=== PATIENT | female | born 1995 | race Caucasian/White ===

== ENCOUNTER 2016-08-27 14:54 | Emergency (ER) | payer OTHER ==
[~2016-08-27] VITALS: Ht 172.7 cm; Wt 131.3 kg
[2016-08-27 14:57] VITALS: TEMP 36.7; Ht 172.7 cm; Wt 131.3 kg
[2016-08-27] MEDS ORDERED: LORA10TA5 PO (15:30)
[2016-08-27] MEDS ORDERED: JNLF153028 PO (15:30)
--- NOTE | 2016-08-27 15:35 | DIAGNOSTIC IMAGING REPORT ---
LEFT TIBIA AND FIBULA 2 VIEWS CLINICAL HISTORY: Fall with left john pain. FINDINGS: AP and lateral views of the left tibia and fibula are correlated with radiographs of the left ankle dated 01/25/2016. The skeletal structures are well mineralized. No fracture is seen. The knee and ankle joints are grossly maintained. Pretibial soft tissue swelling is noted. IMPRESSION: Pretibial soft tissue swelling with no radiographic evidence of fracture. Electronically signed by: Giorgio Varela M.D. 08/27/2016 3:33 PM Dictated Date/Time: 08/27/2016 3:32 PM
--- NOTE | 2016-08-27 15:53 | EMERGENCY ROOM VISIT NOTE ---
ED Visit Note First contact with patient: 15:00 CHIEF COMPLAINT: Left lower leg injury 4 days ago HISTORY OF PRESENT ILLNESS: Patient is a 21-year-old white female who presents to emergency department for evaluation of left john pain 4 days. She states that she fell while taking out the garbage couple of days ago. She landed on rocks. She notes that she fell on her left knee and sustained an abrasion to the knee and the midportion of the left leg. She also has noted some bruising in her anterior john region. She states that she has been trying to stay off of the leg and stay in bed. She has not taken any medications, nor performed any interventions for her symptoms. She reports that she has had some problems with her left ankle and is scheduled to see a doctor in [place] in a month. REVIEW OF SYSTEMS: Review of systems as per HPI. All other systems reviewed were negative. At least 6 systems reviewed. PMH: Electronic medical records are reviewed and summarized as above/below. See Problem List. SOCIAL HISTORY: Patient lives at home. Nonsmoker. PHYSICAL EXAM: Vital Signs: Reviewed Nurse's notes. MENTAL STATUS: Alert, oriented, and cooperative. MUSCULOSKELETAL: Examination of the left lower leg show healing abrasions over the anterior left knee and lateral mid left john. There are no signs of infection or foreign body. She has some ecchymosis noted in the anterior tibial region, which is slightly tender to palpation. The knee and ankle are not swollen or tender, and range of motion is full. There is no fracture crepitus along the fibula. EMERGENCY DEPARTMENT COURSE: X-ray of the tibia/fibula does not show any fractures. The patient was reassured. I suspect her underlying left ankle instability may have contributed to her fall. She does not have evidence for fracture. I don't suspect compartment syndrome. The patient was encouraged to continue conservative care and follow-up with orthopedics as she has scheduled. LEFT TIBIA AND FIBULA 2 VIEWS CLINICAL HISTORY: Fall with left john pain. FINDINGS: AP and lateral views of the left tibia and fibula are correlated with radiographs of the left ankle dated 01/25/2016. The skeletal structures are well mineralized. No fracture is seen. The knee and ankle joints are grossly maintained. Pretibial soft tissue swelling is noted. IMPRESSION: Pretibial soft tissue swelling with no radiographic evidence of fracture. Problem List Medical Problems: (1) Ankle injury Status: Resolved (2) Ankle pain Status: Resolved (3) Ankle pain Status: Resolved (4) Ankle pain Status: Resolved (5) Ankle sprain Status: Resolved (6) Left ankle pain Status: Resolved (7) Left ankle sprain Status: Resolved (8) Left foot pain Status: Resolved (9) Muscle strain of scapular region Status: Resolved (10) No significant medical problems Status: Chronic Surgical Problems: (1) No significant past surgical history Status: Chronic Current/Historical Medications Scheduled Ethinyl Estradiol/Norethindr (), 1 TAB PO DAILY Loratadine (Claritin), 10 MG PO DAILYBB Allergies Coded Allergies: NO KNOWN DRUG ALLERGIES (Verified Allergy, Unknown, none, 08/27/16) Vital Signs Date Time Temp Pulse Resp B/P Pulse Ox O2 Delivery O2 Flow Rate FiO2 08/27/16 16:14 97 18 131/94 98 08/27/16 14:57 36.7 96 18 147/88 97 Room Air Departure Information Impression Primary Impression: Contusion of left leg Additional Impression: Lower leg abrasion Referrals Aydee Negro D.O. (PCP) Patient Instructions [facility] Additional Instructions Ibuprofen(Motrin, Advil) may be used for fever or pain. Use 600mg every six hours as needed. Take with food. Avoid using more than 2400mg in a 24 hour period. Do not use 2400mg per day for more than three consecutive days without physician direction. Prolonged inappropriate use can lead to stomach upset or ulcers. This medication can be taken if you need to drive, work, or perform activities which may be dangerous when taking narcotic pain medication. (AND/OR) Acetaminophen(Tylenol) may be used for fever or pain. Use 1000mg every six hours as needed. Avoid using more than 3000mg in a 24 hour period. This medication can be taken if you need to drive, work, or perform activities which may be dangerous when taking narcotic pain medication. Keep abrasions clean and dry and cover with antibiotic ointment until healed. Ice compresses for 20 minutes at a time four times daily for 2-3 days. Rest and elevate your injury. May resume normal activity as symptoms allow. Continue current medications. Return to the ER immediately for any numbness, tingling, severe pain, extreme swelling in the extremity or as needed. Followup with your family doctor or orthopedic surgery if no improvement in 5-7 days. Problem Qualifiers
[2016-08-27 16:14] VITALS: BP 131/94; PULSE 97; O2SAT 98
[2017-03-18] MEDS ORDERED: ARIP1TAB8 PO (12:45)
[2017-03-18] MEDS ORDERED: SERT-234 PO (12:45)
== END 2016-08-27 16:15 | disposition home or self-care (01) ==
LOC: C.EDB 14:55 → C.EDD 16:15
DX: S80.12XA Contusion of left lower leg, initial encounter (principal); S80.812A Abrasion, left lower leg, initial encounter; W19.XXXA Unspecified fall, initial encounter; Y92.89 Other specified places as the place of occurrence of the external cause; Z79.899 Other long term (current) drug therapy

== ENCOUNTER → 2017-06-26 | Outpatient (CLI) | payer OTHER ==
[~2017-06-26] MED LIST: ARIP1TAB8 PO; JNLF153028 PO; LORA10TA6 PO; SERT-234 PO
[2017-06-26 12:49] LABS: BASO % 0.5 %; BASO ABS # 0.04 K/uL (0-0.2); EOS ABS # 0.08 K/uL (0-0.5); HEMATOCRIT 40.3 % (37-47); IG# 0.02 K/uL (0.00-0.02); LYMPH % 23.6 %; LYMPH ABS # 1.89 K/uL (1.2-3.4); MEAN CELL VOLUME 84.7 fL (80-100); MEAN CORPUSCULAR HEMOGLOBIN 27.3 pg (25-34); MEAN CORPUSCULAR HGB CONC 32.3 g/dl (32-36); MEAN PLATELET VOLUME 11.3 fL (7.4-10.4); MONO % 5.9 %; MONO ABS # 0.47 K/uL (0.11-0.59); NEUT % 68.7 %; PLATELET COUNT 369 K/uL (130-400); RED CELL DISTRIBUTION WIDTH CV 14.4 % (11.5-14.5); RED CELL DISTRIBUTION WIDTH SD 44.8 fL (36.4-46.3)
[2017-06-26 13:35] LABS: ALBUMIN 3.7 gm/dl (3.4-5.0); ALT/SGPT 32 U/L (12-78); AST/SGOT 16 U/L (15-37); BLOOD UREA NITROGEN 15 mg/dl (7-18); CALCIUM 9.6 mg/dl (8.5-10.1); CARBON DIOXIDE 24 mmol/L (21-32); CREATININE 0.74 mg/dl (0.60-1.20); GLUCOSE 91 mg/dl (70-99); POTASSIUM 4.1 mmol/L (3.5-5.1); SODIUM 136 mmol/L (136-145)
[2017-06-26 13:43] LABS: ALKALINE PHOSPHATASE 108 U/L (45-117); CHOLESTEROL 217 mg/dl (0-200); LDL CHOLESTEROL CALCULATED 156 mg/dl; TOTAL PROTEIN 7.9 gm/dl (6.4-8.2)
== END | disposition home or self-care (01) ==
LOC: C.LABBFT 09:58
PROVIDERS: ATTEND Physician Assistant Medical
DX: Z00.00 Encounter for general adult medical examination without abnormal findings (principal); E66.9 Obesity, unspecified

== ENCOUNTER → 2017-09-03 | Outpatient (CLI) | payer OTHER | END | disposition home or self-care (01) | LOC: C.LABSPEC 15:40 | PROVIDERS: ATTEND Obstetrics & Gynecology | DX: N92.6 Irregular menstruation, unspecified (principal) ==

== ENCOUNTER → 2017-09-03 | Outpatient (CLI) | payer OTHER | END | disposition home or self-care (01) | LOC: C.PAPS 16:41 | PROVIDERS: ATTEND Obstetrics & Gynecology | DX: Z12.4 Encounter for screening for malignant neoplasm of cervix (principal) ==

== ENCOUNTER 2017-10-02 16:34 | Emergency (ER) | payer OTHER ==
[~2017-10-02] VITALS: Ht 172.7 cm; Wt 136.3 kg
[2017-10-02 16:37] VITALS: TEMP 36.9; Ht 172.7 cm; Wt 136.3 kg
--- NOTE | 2017-10-02 17:11 | DIAGNOSTIC IMAGING REPORT ---
L ANKLE MIN 3 VIEWS ROUTINE CLINICAL HISTORY: 22 years-old Female presenting with L ankle pain s/p injury. TECHNIQUE: Frontal, mortise, and lateral views of the left ankle were obtained. COMPARISON: 01/25/2016. FINDINGS: Ankle mortise intact. No acute fracture or malalignment. No advanced degenerative change. Soft tissue swelling over the lateral malleolus. A small ankle joint effusion may be present. IMPRESSION: No acute osseous injury. Electronically signed by: Home Salinas M.D. 10/02/2017 5:09 PM Dictated Date/Time: 10/02/2017 5:08 PM
[2017-10-02] MEDS ORDERED: WLL100 PO (17:18)
[2017-10-02] MEDS ORDERED: QUET1TAB10 PO (17:18)
--- NOTE | 2017-10-02 17:41 | EMERGENCY ROOM VISIT NOTE ---
ED Visit Note First contact with patient: 16:39 I have seen and examined this patient with Bruce Enriquez and generally agree with the treatment plan as discussed. Problem List Medical Problems: (1) Ankle injury Status: Resolved (2) Ankle pain Status: Resolved (3) Ankle pain Status: Resolved (4) Ankle pain Status: Resolved (5) Ankle sprain Status: Resolved (6) Left ankle pain Status: Resolved (7) Left ankle sprain Status: Resolved (8) Left foot pain Status: Resolved (9) Muscle strain of scapular region Status: Resolved (10) No significant medical problems Status: Chronic Surgical Problems: (1) No significant past surgical history Status: Chronic Current/Historical Medications Scheduled Bupropion HCl (Bupropion HCl), 100 MG PO DAILY Ethinyl Estradiol/Norethindr (), 1 TAB PO DAILY Loratadine (Claritin), 10 MG PO DAILYBB Quetiapine Fumarate (Seroquel), 200 MG PO DAILY Allergies Coded Allergies: NO KNOWN DRUG ALLERGIES (Verified Allergy, Unknown, none, 10/02/17) Vital Signs Date Time Temp Pulse Resp B/P (MAP) Pulse Ox O2 Delivery O2 Flow Rate FiO2 10/02/17 16:37 36.9 104 18 134/95 97 Room Air Departure Information Referrals No Doctor, Assigned (PCP) Patient Instructions My [facility]
--- NOTE | 2017-10-02 17:49 | EMERGENCY ROOM VISIT NOTE ---
History First contact with patient: 16:39 Chief Complaint: ANKLE PAIN Stated Complaint: LEFT ANKLE History of Present Illness The patient is a 22 year old female who presents to the Emergency Room with complaints of "left ankle pain". The patient states that 2 weeks ago she twisted her left ankle and now she has continued pain. She rates the overall pain as a 10/10. She states that the ibuprofen she is taking is not alleviating the pain. She denies any history of blood clots, prior injury, fevers or chills. Review of Systems A complete 6-point Review of Systems was discussed with the patient, with pertinent positives and negatives listed in the History of Present Illness. All remaining Review of Systems questions can be considered negative unless otherwise specified. Past Medical/Surgical History Medical Problems: (1) Ankle injury (2) Ankle pain (3) Ankle pain (4) Ankle pain (5) Ankle sprain (6) Left ankle pain (7) Left ankle sprain (8) Left foot pain (9) Muscle strain of scapular region (10) No Known Active Medical Problems (11) No significant medical problems Surgical Problems: (1) No significant past surgical history Family History No pertinent Social History Smoking Status: Never Smoker Alcohol Use: none Drug Use: none Marital Status: single Occupation Status: employed Current/Historical Medications Scheduled Bupropion HCl (Bupropion HCl), 100 MG PO DAILY Ethinyl Estradiol/Norethindr (), 1 TAB PO DAILY Loratadine (Claritin), 10 MG PO DAILYBB Quetiapine Fumarate (Seroquel), 200 MG PO DAILY Physical Exam Vital Signs Date Time Temp Pulse Resp B/P (MAP) Pulse Ox O2 Delivery O2 Flow Rate FiO2 10/02/17 18:03 94 16 148/94 99 10/02/17 16:37 36.9 104 18 134/95 97 Room Air Physical Exam VITAL SIGNS - Vital signs and nursing notes were reviewed. Stable. GENERAL -22-year-old female appearing her stated age who is in no acute distress. Communicates well with provider and answers questions appropriately. SKIN - Without rashes. No meningeal or petechial rash. EXTREMITIES - No clubbing or peripheral cyanosis. No pretibial edema present. There is tenderness overlying the diffuse ankle joint. There is no break in the integument overlying the area in question. There is a small abrasion noted to the insertion area/site of the Achilles tendon on the calcaneus. No proximal tibia/fibular tenderness or foot tenderness. Medical Decision & Procedures ER Provider Diagnostic Interpretation: L ANKLE MIN 3 VIEWS ROUTINE CLINICAL HISTORY: 22 years-old Female presenting with L ankle pain s/p injury. TECHNIQUE: Frontal, mortise, and lateral views of the left ankle were obtained. COMPARISON: 01/25/2016. FINDINGS: Ankle mortise intact. No acute fracture or malalignment. No advanced degenerative change. Soft tissue swelling over the lateral malleolus. A small ankle joint effusion may be present. IMPRESSION: No acute osseous injury. Electronically signed by: Home Salinas M.D. 10/02/2017 5:09 PM Dictated Date/Time: 10/02/2017 5:08 PM Medical Decision Patient was seen and evaluated as above in room D5. Review was performed of nursing notes and vital signs. After obtaining a thorough history and physical examination the above work up was performed. She presents to us today with left ankle pain. She injured this 2 weeks ago. Nontoxic on exam. X-ray was obtained. Results as above. No acute fracture. I suspect ankle sprain. She was placed in a gel ankle splint and recommended crutches however she declined crutches. She is to follow with orthopedics if symptoms persist beyond 5 days or return with worsening. The patient was educated upon management, had questions answered prior to discharge, and was discharged home in good condition. I attest that I have personally reviewed the patient medication list. I attest that I have reviewed the patient's blood pressure and it was found to be elevated likely secondary to situation In the evaluation and treatment of this patient, the following differential diagnoses were considered: Ankle Fracture, Ankle Sprain, Distal Fibula Fracture , Distal Tibia Fracture, Foot Fracture, [place]uve Fracture. Impression Primary Impression: Left ankle pain Departure Information Dispostion Home / Self-Care Condition GOOD Referrals No Doctor, Assigned (PCP) Russel Willingham, DO Patient Instructions My [facility] Additional Instructions You have been treated in the Emergency Department for a left Ankle pain. For pain control, you can use the following [id number] medicines (if >12 yo): - Regular strength (325mg/tab) Tylenol (acetaminophen) 2 tabs every 4-6 hours as needed. Do not exceed 12 tablets in a 24 hour period. Avoid taking more than 3 grams (3000 mg) of Tylenol per day. This includes any other sources of acetaminophen you may take on a regular basis. - Regular strength (200 mg/tab) Advil (ibuprofen) 1-2 tabs every 4-6 hours as needed. Do not exceed a dose of 3200 mg per day. If this is a recent injury (<24 hrs), ice can be applied to the area of pain for the first 3 days to help decrease pain and inflammation. You have been provided the number for an Orthopaedic Surgeon. You should call this number as soon as possible to establish a follow-up visit from today's Emergency Department visit. Keep the ankle brace/splint in place until cleared by Orthopedics. Return to the Emergency Department if your current symptoms worsen despite treatment course outlined above, or if you develop any of the following symptoms : intractable pain despite aforementioned treatment course or new onset of numbness or tingling of the foot.
[2017-10-02 18:03] VITALS: BP 148/94; PULSE 94; O2SAT 99
== END 2017-10-02 18:04 | disposition home or self-care (01) ==
LOC: C.EDB 16:35 → C.EDD 18:04
DX: S90.512A Abrasion, left ankle, initial encounter (principal); M25.572 Pain in left ankle and joints of left foot; X50.9XXA Other and unspecified overexertion or strenuous movements or postures, initial encounter